=== PATIENT | male | born 1985 | race Caucasian/White ===

== ENCOUNTER 2025-05-20 13:58 | Emergency (ER) | payer BC ==
[~2025-05-20] VITALS: Ht 180.3 cm; Wt 79.4 kg
[2025-05-20 14:10] VITALS: TEMP 97.7
[2025-05-20] MEDS ORDERED: ACETAMINOPHEN ES 500 MG TABLET ONE (14:56)
[2025-05-20] MEDS ORDERED: IBUPROFEN 400 MG TABLET ONE (14:56)
[2025-05-20] MEDS: ACETAMINOPHEN ES 500 MG TABLET PO ONE (15:00)
[2025-05-20] MEDS: IBUPROFEN 400 MG TABLET PO ONE (15:00)
[2025-05-20] MEDS ORDERED: IBUP-1490 PO (15:08)
[2025-05-20] MEDS ORDERED: ACET-2030 PO (15:08)
[2025-05-20 16:09] VITALS: BP 110/70; O2SAT 99
== END 2025-05-20 16:09 | disposition home or self-care (01) ==
LOC: ER 14:10
DX: S52.611A Displaced fracture of right ulna styloid process, initial encounter for closed fracture (principal); V18.4XXA Pedal cycle driver injured in noncollision transport accident in traffic accident, initial encounter; Y93.55 Activity, bike riding; Y92.89 Other specified places as the place of occurrence of the external cause; Y99.8 Other external cause status
CPT/HCPCS: 73110